=== PATIENT | female | born 2000 | race African-American/Black ===

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

== ENCOUNTER 2021-11-18 09:30 | Emergency (ER) | payer BC, MEDICAID ==
[~2021-11-18] VITALS: Ht 165.1 cm; Wt 56.0 kg
[2021-11-18 09:52] VITALS: BP 118/77
== END 2021-11-18 10:47 | disposition home or self-care (01) ==
LOC: ER 09:31
DX: S63.591A Other specified sprain of right wrist, initial encounter (principal); X58.XXXA Exposure to other specified factors, initial encounter; Y93.89 Activity, other specified; Y92.89 Other specified places as the place of occurrence of the external cause; Y99.8 Other external cause status
CPT/HCPCS: 29125; 73130; 99283; L3908

== ENCOUNTER 2022-11-19 22:59 | Emergency (ER) | payer BC, OTHER ==
[~2022-11-19] VITALS: Ht 165.1 cm; Wt 64.5 kg
[2022-11-19 23:11] VITALS: BP 122/80
[2022-11-19] MEDS ORDERED: PENICILLIN G BENZATHINE 2,400,000 UNIT/4 ML SYRINGE IM STA (23:47)
[2022-11-19] MEDS ORDERED: azithromycin 250mg tablet PO ONE (23:50)
[2022-11-20] MEDS ORDERED: CefTRIAXone 250MG IM Kit w/LIDOcaine IM STA
[2022-11-20 00:03] LABS: URINE HCG NEGATIVE (NEG)
[2022-11-20] MEDS ORDERED: CefTRIAXone 500MG IM Kit w/LIDOcaine IM ONE (00:05)
[2022-11-20 00:10] LABS: CLARITY,URINE CLEAR (Clear); COLOR,URINE YELLOW (Yellow); GLUCOSE, URINE NEGATIVE (Neg); KETONES,URINE NEGATIVE (Neg); LEUKOCYTE ESTERASE ,URINE NEGATIVE (Neg); NITRITES, URINE NEGATIVE (Neg); OCCULT BLOOD,URINE SMALL (Neg); PROTEIN,URINE NEGATIVE (Neg); UROBILINOGEN,URINE 0.2 E.U/dL (0.2-1.0)
[2022-11-20 00:11] LABS: UA COLLECTION TYPE NON-SPECIFIED
[2022-11-20 00:27] LABS: BACTERIA,URINE 1+ /HPF (Neg); SQUAMOUS EPITHELIAL CELL,UR FEW /LPF (FEW); WBC,URINE 0-4 /HPF (0-4)
[2022-11-20 00:30] LABS: MUCUS STRANDS FEW /LPF (Neg); YEAST FEW /HPF (NEGATIVE)
[2022-11-20 00:50] LABS: HIV ANTIBODY 1&2 RAPID NON-REACTIVE (Neg)
[2022-11-20] MEDS ORDERED: DOXY-1 PO (18:50)
[2022-11-20] MEDS ORDERED: METR-159 PO (18:50)
== END 2022-11-20 00:31 | disposition left against medical advice (07) ==
LOC: ER 22:59
DX: A64 Unspecified sexually transmitted disease (principal)
CPT/HCPCS: 36415; 81001; 81003; 81025; 86592; 86703; 87491; 99283

== ENCOUNTER 2022-11-20 17:28 | Emergency (ER) | payer OTHER ==
[~2022-11-20] VITALS: Ht 165.1 cm; Wt 64.1 kg
[2022-11-20 17:57] VITALS: BP 127/77
[2022-11-20] MEDS ORDERED: METR-159 PO (18:50)
[2022-11-20] MEDS ORDERED: DOXY-1 PO (18:50)
[2022-11-20 19:00] LABS: MONOTEST NEGATIVE (Neg)
--- NOTE | 2022-11-20 19:01 | NUR ---
Updated allergy's Pt is unable to take Flagyl. made aware.
== END 2022-11-20 19:06 | disposition home or self-care (01) ==
LOC: ER 17:29
DX: R50.9 Fever, unspecified (principal); N90.89 Other specified noninflammatory disorders of vulva and perineum; F17.200 Nicotine dependence, unspecified, uncomplicated
CPT/HCPCS: 36415; 71045; 86308; 87040; 99284; 99285